=== PATIENT | male | born 1990 | race Caucasian/White ===

== ENCOUNTER 2022-08-23 22:06 | Emergency (ER) | payer OTHER, SELFPAY ==
--- NOTE | ~2022-08-23 | XR_ITS ---
EXAMINATION: XR HAND, RIGHT CLINICAL INFORMATION: Infection the middle finger. Suspected osteomyelitis. COMPARISON: None TECHNIQUE: PA, lateral, and oblique views of the right hand. FINDINGS: The third digit shows satisfactory bony alignment and intact cortices. Articular margins, joint space appear unremarkable. Incidental note is made of mild deformity and subtle radiolucency involving the shaft of the fifth metacarpal, likely represent old posttraumatic change. XR/XR hand RT min 3V IMPRESSION: No radiographic evidence of osteomyelitis involving the left third finger.
--- NOTE | ~2022-08-23 | CT_ITS ---
EXAMINATION: CT HEAD WITHOUT CONTRAST CLINICAL INFORMATION: Altered mental status COMPARISON: None. TECHNIQUE: Contiguous axial imaging was performed from the skull base to vertex without intravenous administration of contrast. Coronal and sagittal reformatted images are performed at the CT scanner. [This CT examination was performed using dose optimization techniques as appropriate, variously including the following: *Automated exposure control *Adjustment of mA and/or kV according to patient size (this includes techniques or standardized protocols for targeted exams where dose is matched to indication/reason for exam; i.e. extremities or head) *Use of iterative reconstruction technique] DLP: 648 mGy-cm. FINDINGS: There is no evidence of acute intracranial hemorrhage or territorial infarction. No abnormal mass-effect or midline shift is seen. Edmonds to white matter differentiation is well preserved. No extra-axial fluid collections are identified. The ventricles are normal in size. There is no abnormal attenuation within the brain parenchyma. There is no osseous abnormality. The mastoid air cells and visualized portions of the paranasal sinuses are well-aerated. CT/CT head/brain wo IV con IMPRESSION: No acute intracranial pathology.
[2022-08-23 22:38] VITALS: BP 124/82; PULSE 84; PULSE 95; RESP 20; TEMP 36.7; O2SAT 100; O2SAT 98; BMI 30.1
--- NOTE | 2022-08-23 22:59 | ED.GENADULT ---
HPI - General Adult General Chief complaint: Skin/Abscess/Foreign Body Stated complaint: psych eval Time Seen by Provider: 08/23/22 22:53 Source: patient and EMS Mode of arrival: EMS Limitations: no limitations History of Present Illness HPI narrative: This is a 32 year old male history of opiate use disorder on methadone presenting for medical clearance and evaluation of right middle finger swelling times a few days. Patient is coming from [facility] unit at [facility], according to report from a EMS patient was reporting that he felt foggy. Patient tells me he does feels often something does not feel right he tells me it may be his medications as they have switched multiple times. According to EMS report patient was mumbling and spacing out at the facility which prompted them to call and get him evaluated in the emergency department. No reported trauma, patient denies trauma. Patient's only complaint is his right middle finger is becoming red, swollen and painful around the nail. He tells me he frequently bites his nails. Denies fevers, chills, chest pain, shortness of breath, nausea, vomiting, headache, vision changes, dizziness, weakness. Denies suicidal and homicidal ideation. Denies drugs, alcohol tobacco. Denies visual, auditory and tactile hallucinations. Related Data Previous Rx's Medication Instructions Recorded cephalexin 500 mg tablet 500 mg PO Q6H 10 days #40 tabs 08/23/22 doxycycline hyclate 100 mg capsule 100 mg PO BID 10 days #20 caps 08/23/22 Allergies Allergy/AdvReac Type Severity Reaction Status Date / Time No Known Allergies Allergy Verified 08/23/22 22:38 Review of Systems Review of Systems: Constitutional : No Weight loss, No Fever, No Chills, No Fatigue, No Malaise ENT/Mouth : No sore throat, No Rhinorrhea Eyes: No Eye Pain, No Swelling, No Redness Cardiovascular : No Chest Pain, No SOB, No Dyspnea on Exertion, No Orthopnea, No Edema, No Palpitations Respiratory : No Cough, No Sputum, No Wheezing Gastrointestinal : No Nausea, No Vomiting, No Diarrhea, No Constipation, No abdominal Pain, No Hematochezia, No Melena Genitourinary : No Dysuria, No Urinary Frequency, No Hematuria, Musculoskeletal : + joint pain, No Myalgias, + Joint Swelling Skin : No Skin Lesions, No rash Neuro : No Weakness, No Numbness, No Dizziness, No Headache Psych : No Anxiety/Panic, No Depression All other systems reviewed and are negative Yes all other systems are reviewed and are negative [facility] Past Medical History Attestation statement: The following information was validated with the patient. Source: old records reviewed and nursing notes reviewed Social History Social History Advance Directives: No Physical Exam ED Vital Signs: Vital Signs - 24 hr 08/23/22 22:38 Temperature 98.1 F Pulse Rate 95 Respiratory Rate 20 Pulse Oximetry 98 Oxygen Delivery Method Room Air BMI result Body Mass Index 30.1 vss Appearance: Alert.? Oriented X3.? No acute distress.? Head: Normocephalic, atraumatic, no step-offs or deformities Eyes: Pupils equal, round and reactive to light.? Neck: Normal inspection.? Neck supple.? CVS: Normal heart rate and rhythm.? Pulses normal.? Respiratory: No respiratory distress.? Breath sounds normal.? Abdomen: Soft and nontender.? Skin: Skin warm and dry.? Normal skin color.? Normal skin turgor.? Extremities: No lower extremity edema.? No calf ttp. 5/5 strength to bilateral upper and lower extremities. Patient's right middle finger with paronychia noted without abscess, paronychia has overlying cellulitis. Back: No midline tenderness, no C-spine tenderness, full range of motion, no CVA tenderness bilaterally Neuro: Oriented X 3.? No motor deficit.? No sensory deficit. CN 2-12 intact . Patient following commands. Patient alert to person, place, situation however not time. Negative pronator drift. Normal strength upper and lower extremities. Normal hand print shop manager. Negative Romberg. Normal [id number]. Ambulating with steady gait normal coordination Course Reevaluation(s) Reevaluation #1: Patient's CBC with slight leukocytosis likely secondary to infection of the right middle finger. Chemistry with no acute findings requiring intervention. Ammonia within normal limits. Head CT with no acute findings. X-ray of the right hand with no radiographic evidence of osteomyelitis. Patient will be discharged back to [facility] with doxycycline and Keflex. First doses were given here. Educated patient on diagnosis and treatment plan, answered all question, patient verbalizes understanding. At this time patient will be discharged home, advised to return with new or worsening symptoms. Educated on worrisome signs and symptoms and when to return. At this time I feel comfortable discharge home. At time of discharge patient alert and oriented x4, tells me he is feeling better. Vital signs stable. Time: 00:39 Medications Administered Discontinued Medications Generic Name Dose Route Start Last Admin Trade Name Ele PRN Reason Stop Dose Admin Cephalexin HCl 500 mg 08/23/22 23:10 08/23/22 23:23 Cephalexin 500 Mg Capsule PO 08/23/22 23:11 500 mg ONCE ONE Administration Doxycycline Monohydrate 100 mg 08/23/22 23:10 08/23/22 23:23 Doxycycline Monohydrate 100 Mg Capsule PO 08/23/22 23:11 100 mg ONCE ONE Administration Medical Decision Making Medical Decision Making [facility] Narrative: 2300 32-year-old presents for evaluation of right middle finger pain and altered mental status per Denisse [place] Physical exam significant for Patient's right middle finger with paronychia noted without abscess, paronychia has overlying cellulitis. Patient alert to person, place, situation however not time. Likely paronychia to the right middle finger, unlikely septic joint, herpetic gilma, sepsis. Patient's altered mentation could be secondary to psych reasons or overmedication, I do not suspect intracranial hemorrhage, stroke, posterior stroke, encephalitis or meningitis. Plan at this time basic labs, ammonia, x-ray of right hand, head CT, UA, drug screen. Differential Diagnosis Differential Diagnoses: The differential diagnosis associated with the presentation includes Likely paronychia to the right middle finger, unlikely septic joint, herpetic gilma, sepsis. Patient's altered mentation could be secondary to psych reasons or overmedication, I do not suspect intracranial hemorrhage, stroke, posterior stroke, encephalitis or meningitis. Admission/Observation Consideration of admission/observation: Escalation of care including admission/observation considered Unlikely Lab Data 08/24/22 00:05 08/24/22 00:05 Labs: Lab Results 08/24/22 08/24/22 08/24/22 Range/Units 00:05 00:05 00:05 WBC 10.9 H (4.8-10.8) X10*3/uL RBC 5.09 (4.60-5.80) X10*6/uL Hgb 14.6 (14.0-18.0) g/dl Hct 43.1 (42.0-52.0) % MCV 84.7 (80.0-98.0) fL MCH 28.7 (27.0-33.0) pg MCHC 33.9 (31.0-36.0) g/dl RDW 12.5 (11.0-16.0) % Plt Count 324 (160-400) X10*3/uL MPV 9.1 L (9.4-12.4) fL Immature Gran % (Auto) 0.2 (0.0-0.4) % Neut % (Auto) 73.3 H (45-73) % Lymph % (Auto) 18.8 L (20-40) % Calloway % (Auto) 6.4 (2-11) % Eos % (Auto) 0.8 (0-4) % Baso % (Auto) 0.5 (0-2) % Lymph # (Auto) 2.1 (1.2-4.9) X10*3/uL Calloway # (Auto) 0.7 (0.1-1.2) X10*3/uL Eos # (Auto) 0.1 (0.0-0.4) X10*3/uL Baso # (Auto) 0.1 (0.0-0.2) X10*3/uL Abs Immat Gran (auto) 0.02 (0.00-0.03) X10*3/uL Absolute Neuts (auto) 8.0 (2.0-8.3) x10*3/uL Absolute Nucleated RBC 0.000 (0.0-0.012) X10*3/uL Nucleated RBC % (auto) 0.0 (0.0-0.2) /100WBC Sodium 140 (135-145) mmol/L Potassium 4.2 (3.3-5.1) mmol/L Chloride 107 (96-108) mmol/L Carbon Dioxide 20 L (22-29) mmol/L Anion Gap 17 (12-20) BUN 19 H (9-16) mg/dL Creatinine 1.03 (0.5-1.4) mg/dL Estim Creat Clear Calc 106.6 Estimated GFR > 60 Random Glucose 106 (60-115) mg/dL Calcium 9.5 (8.4-10.2) mg/dL Total Bilirubin 0.4 (0.0-1.0) mg/dL AST 23 (5-37) U/L ALT 33 (0-40) U/L Alkaline Phosphatase 112 (39-117) U/L Ammonia 45 (13-55) umol/L Total Protein 7.1 (6.5-8.0) g/dL Albumin 4.1 (3.5-5.0) g/dL Independent Interpretation I performed an independent interpretation of an: Plain X-Ray and CT Scan Radiology Impression Discussion of test interpretation with radiology: I have reviewed the radiologist's reading. Core Measures AMI core measures followed: Yes Measure exclusions: not indicated Discharge Plan Discharge Clinical Impression: Cellulitis, Paronychia of finger Patient Disposition: Home, Self-Care Instructions: Paronychia (ED), Cellulitis (ED), Warm Compress or Soak (ED) Additional Instructions: Take your medications as prescribed. If you were prescribed antibiotics today, it is important that you take your medication to their entirety, do not skip any doses, do not finish them early. Follow-up with your primary care provider this week. Return to the emergency department with new or worsening symptoms. Such as fevers, chills, chest pain, shortness of breath, nausea, vomiting, dizziness, headache, vision changes, lethargy, inability to bend finger, worsening redness Apply warm compresses to affected area. In case of emergency call 911 Prescriptions: New doxycycline hyclate 100 mg capsule 100 mg PO BID 10 Days Qty: 20 0RF cephalexin 500 mg tablet 500 mg PO Q6H 10 Days Qty: 40 0RF Referrals: Velvet Chin [Emergency Nurse] - 2 days Stand Alone Forms: Work/School Release
[2022-08-23] MEDS: Doxycycline Monohydrate 100 MG CAPSULE PO (23:23)
[2022-08-23] MEDS: cephALEXin 500 MG CAPSULE PO (23:23)
[2022-08-24 00:10] LABS: MANUAL DIFF FLAG NO
[2022-08-24 00:11] LABS: Basophils Absolute Auto 0.1 X10*3/uL (0.0-0.2); Basophils Percent Auto 0.5 % (0-2); Eosinophils Absolute Auto 0.1 X10*3/uL (0.0-0.4); Eosinophils Percent Auto 0.8 % (0-4); Hematocrit 43.1 % (42.0-52.0); Hemoglobin 14.6 g/dl (14.0-18.0); Imm Gran Abs Auto 0.02 X10*3/uL (0.00-0.03); Imm Gran Pct Auto 0.2 % (0.0-0.4); Lymphocytes Absolute Auto 2.1 X10*3/uL (1.2-4.9); Lymphocytes Percent Auto 18.8 % (20-40); Mean Corpuscular HGB Conc 33.9 g/dl (31.0-36.0); Mean Corpuscular Hemoglobin 28.7 pg (27.0-33.0); Mean Corpuscular Volume 84.7 fL (80.0-98.0); Mean Platelet Volume 9.1 fL (9.4-12.4); Monocytes Absolute Auto 0.7 X10*3/uL (0.1-1.2); Monocytes Percent Auto 6.4 % (2-11); Neutrophils Percent Auto 73.3 % (45-73); Platelet Count 324 X10*3/uL (160-400); Red Blood Count 5.09 X10*6/uL (4.60-5.80); Red Cell Distribution Width 12.5 % (11.0-16.0); White Blood Count 10.9 X10*3/uL (4.8-10.8)
[2022-08-24 00:19] LABS: Ammonia 45 umol/L (13-55)
[2022-08-24 00:35] LABS: Alanine Aminotransferase 33 U/L (0-40); Albumin Level 4.1 g/dL (3.5-5.0); Alkaline Phosphatase 112 U/L (39-117); Anion Gap 17 (12-20); Aspartate Amino Transferase 23 U/L (5-37); Bilirubin Total 0.4 mg/dL (0.0-1.0); Blood Urea Nitrogen 19 mg/dL (9-16); Calcium 9.5 mg/dL (8.4-10.2); Carbon Dioxide 20 mmol/L (22-29); Chloride 107 mmol/L (96-108); Creatinine Clr Calc Pharmacy 106.6; Estimated Glomerular Filt Rate > 60; Glucose Random 106 mg/dL (60-115); Potassium 4.2 mmol/L (3.3-5.1); Sodium 140 mmol/L (135-145); Total Protein 7.1 g/dL (6.5-8.0)
--- NOTE | 2022-08-24 00:48 | PC.NURSE ---
Pt. arrived via EMS from [facility]. Pt. has been calm and cooperative since arrival. Have been unable to obtain urine from pt. Pt. aware we need urine and their is a urinal at his bedside. Pt. alert and oriented upon arrival, however, sometimes doesn't seem to be aware of the time or date. Pt. asked for some saline and gauze to clean his finger. Provided this to pt. Pt. medicated with abx per SEP. Pt. currently resting in bed, under no apparent distress. Pt. pending d/c back to [facility]. Will need transportation.
[2022-08-24 01:48] LABS: Appearance Urine Clear; Color Urine Yellow; Glucose Urine UA Negative (Negative); Leukocyte Esterase Urine Negative (Negative); Nitrite Urine Negative (Negative); PH 5.5 (5.0-9.0); Specific Gravity - Urine 1.025 (1.005-1.025); Urine Blood Negative (Negative); Urine Ketones Trace mg/dL (Negative); Urine Protein Negative (Neg-Trace)
[2022-08-24 01:56] LABS: Amphetamine Screen Urine Not Detected (Not Detect); Barbiturates, Urine Not Detected (Not Detect); Benzodiazepines Screen Urine Not Detected (Not Detect); Cannabinoid Screen Urine Not Detected (Not Detect); Cocaine Screen Urine Not Detected (Not Detect); Fentanyl, urine Not Detected (Not Detect); Opiate Screen Urine Not Detected (Not Detect); Phencyclidine Screen Urine Not Detected (Not Detect)
[2022-08-24 02:00] VITALS: BP 129/76; PULSE 76; RESP 18; TEMP 36.8; O2SAT 96
--- NOTE | 2022-08-24 02:48 | PC.NURSE ---
Telephone call received from MAXINE Yost from [facility] who requested to notify Bharat, laboratory supervisor when patient is ready for discharge at [phone]. She also would like to ensure that patient would not be visited by his friends. DEB Verdin RN notified.
--- NOTE | 2022-08-24 03:10 | PC.NURSE ---
Pt. currently sleeping, respirations even and unlabored. No distress noted. Will continue to monitor.
--- NOTE | 2022-08-24 04:51 | PC.NURSE ---
Pt. sleeping, respirations even and unlabored. No distress noted. Will continue to monitor.
[2022-08-24 05:57] VITALS: BP 108/69; PULSE 75; RESP 18; TEMP 36.5; O2SAT 97
--- NOTE | 2022-08-24 08:22 | MHC.CARE ---
CARE Team left message from Joanne STEINBERG for more information
--- NOTE | 2022-08-24 08:36 | PC.NURSE ---
Tatiana from care team at bedside evaluating the pt
[2022-08-24 08:41] VITALS: BP 114/86; PULSE 69; RESP 16; O2SAT 99
--- NOTE | 2022-08-24 08:43 | PC.NURSE ---
pt alert but unable to state the month, or the year reported that its 2004 was able to say that he is in the hospital but not the name of the hospital. when this rn asked the pt if he feels confused he did say yes i do feel a little confused. all nuero's intact, vs stable no sure of the pt's baseline, mu schreiber aware
--- NOTE | 2022-08-24 10:41 | PC.NURSE ---
plan for pt to go inpateint psy at [facility] and transport for 1400
--- NOTE | 2022-08-24 10:59 | HE.PHANOTE ---
METHADONE CONFIRMATION FROM RECEIVED FROM [facility] FOR 15MG METHADONE
[2022-08-24 11:07] VITALS: BP 107/74; PULSE 64; RESP 16; O2SAT 98
--- NOTE | 2022-08-24 12:45 | PC.NURSE ---
pt alert but still appears to be confused, denies si/hi, calm and cooperative was hesitant in taking the Ativan but after some reassurance pt did take the medication
[2022-08-24 12:48] VITALS: BP 120/86; PULSE 60; RESP 18; O2SAT 94
[2022-08-24] MEDS: LORazepam 1 MG TABLET 2 MG PO (12:49)
--- NOTE | 2022-08-24 13:43 | PC.NURSE ---
NURSE TO NURSE GIVEN TO MARITZA AT [facility]
[2022-08-24 14:16] LABS: COVID-19 Test Negative (Negative); IDNOW Serial# BCCEAD1C
== END 2022-08-24 13:50 ==
PROVIDERS: Physician Assistant; Emergency Provider Internal Medicine
DX: L03.011 Cellulitis of right finger (principal); R41.82 Altered mental status, unspecified; R51.9 Headache, unspecified; Z20.822 Contact with and (suspected) exposure to COVID-19; Z20.828 Contact with and (suspected) exposure to other viral communicable diseases; Z79.899 Other long term (current) drug therapy
CPT/HCPCS: 36415; 70450; 73130; 80053; 80307; 81003; 82140; 85025; 87635; 99285; S9485

== ENCOUNTER 2024-03-24 12:56 | Outpatient (REF) | payer OTHER, SELFPAY ==
[2024-03-24 13:12] LABS: MANUAL DIFF FLAG NO
[2024-03-24 14:09] LABS: Basophils Percent Auto 0.6 % (0-2); Eosinophils Absolute Auto 0.4 X10*3/uL (0.0-0.4); Eosinophils Percent Auto 6.6 % (0-4); Hematocrit 40.7 % (42.0-52.0); Imm Gran Abs Auto 0.01 X10*3/uL (0.00-0.03); Imm Gran Pct Auto 0.2 % (0.0-0.4); Lymphocytes Absolute Auto 2.5 X10*3/uL (1.2-4.9); Lymphocytes Percent Auto 47.5 % (20-40); Mean Corpuscular HGB Conc 31.9 g/dl (31.0-36.0); Mean Corpuscular Hemoglobin 28.8 pg (27.0-33.0); Mean Corpuscular Volume 90.2 fL (80.0-98.0); Monocytes Absolute Auto 0.3 X10*3/uL (0.1-1.2); Monocytes Percent Auto 5.8 % (2-11); Neutrophils Absolute Auto 2.1 x10*3/uL (2.0-8.3); Neutrophils Percent Auto 39.3 % (45-73); Platelet Count 286 X10*3/uL (160-400); Red Blood Count 4.51 X10*6/uL (4.60-5.80); Red Cell Distribution Width 13.1 % (11.0-16.0); White Blood Count 5.3 X10*3/uL (4.8-10.8)
== END 2024-03-24 12:57 | disposition home or self-care (01) ==
LOC: HO.LABR 12:56
PROVIDERS: Visit Provider Nurse Practitioner Psychiatric/Mental Health
DX: Z79.899 Other long term (current) drug therapy (principal)
CPT/HCPCS: 36415; 85025

== ENCOUNTER 2024-03-31 08:54 | Outpatient (REF) | payer OTHER, SELFPAY ==
[2024-03-31 09:09] LABS: MANUAL DIFF FLAG NO
[2024-03-31 09:36] LABS: Basophils Absolute Auto 0.1 X10*3/uL (0.0-0.2); Basophils Percent Auto 1.2 % (0-2); Eosinophils Absolute Auto 0.3 X10*3/uL (0.0-0.4); Eosinophils Percent Auto 7.8 % (0-4); Hematocrit 41.8 % (42.0-52.0); Hemoglobin 13.6 g/dl (14.0-18.0); Imm Gran Abs Auto 0.01 X10*3/uL (0.00-0.03); Imm Gran Pct Auto 0.2 % (0.0-0.4); Lymphocytes Absolute Auto 2.3 X10*3/uL (1.2-4.9); Lymphocytes Percent Auto 55.3 % (20-40); Mean Corpuscular HGB Conc 32.5 g/dl (31.0-36.0); Mean Corpuscular Hemoglobin 28.9 pg (27.0-33.0); Mean Corpuscular Volume 88.7 fL (80.0-98.0); Mean Platelet Volume 8.8 fL (9.4-12.4); Monocytes Absolute Auto 0.3 X10*3/uL (0.1-1.2); Monocytes Percent Auto 6.6 % (2-11); Neutrophils Absolute Auto 1.2 x10*3/uL (2.0-8.3); Neutrophils Percent Auto 28.9 % (45-73); Platelet Count 305 X10*3/uL (160-400); Red Blood Count 4.71 X10*6/uL (4.60-5.80); Red Cell Distribution Width 12.8 % (11.0-16.0); White Blood Count 4.1 X10*3/uL (4.8-10.8)
== END 2024-03-31 08:55 | disposition home or self-care (01) ==
LOC: HO.LABR 08:54
PROVIDERS: Visit Provider Nurse Practitioner Psychiatric/Mental Health
DX: Z79.899 Other long term (current) drug therapy (principal)
CPT/HCPCS: 36415; 85025

== ENCOUNTER 2024-04-04 08:59 | Outpatient (REF) | payer OTHER, SELFPAY ==
[2024-04-04 09:10] LABS: MANUAL DIFF FLAG NO
[2024-04-04 09:37] LABS: Basophils Percent Auto 0.9 % (0-2); Eosinophils Absolute Auto 0.4 X10*3/uL (0.0-0.4); Eosinophils Percent Auto 8.2 % (0-4); Hematocrit 43.7 % (42.0-52.0); Hemoglobin 14.2 g/dl (14.0-18.0); Imm Gran Abs Auto 0.01 X10*3/uL (0.00-0.03); Imm Gran Pct Auto 0.2 % (0.0-0.4); Lymphocytes Absolute Auto 2.1 X10*3/uL (1.2-4.9); Lymphocytes Percent Auto 47.2 % (20-40); Mean Corpuscular HGB Conc 32.5 g/dl (31.0-36.0); Mean Corpuscular Hemoglobin 28.8 pg (27.0-33.0); Mean Corpuscular Volume 88.6 fL (80.0-98.0); Mean Platelet Volume 9.1 fL (9.4-12.4); Monocytes Absolute Auto 0.2 X10*3/uL (0.1-1.2); Monocytes Percent Auto 5.5 % (2-11); Neutrophils Absolute Auto 1.7 x10*3/uL (2.0-8.3); Platelet Count 324 X10*3/uL (160-400); Red Blood Count 4.93 X10*6/uL (4.60-5.80); Red Cell Distribution Width 12.8 % (11.0-16.0); White Blood Count 4.4 X10*3/uL (4.8-10.8)
== END 2024-04-04 09:00 | disposition home or self-care (01) ==
LOC: HO.LABR 08:59
PROVIDERS: Visit Provider Nurse Practitioner Psychiatric/Mental Health
DX: Z79.899 Other long term (current) drug therapy (principal)
CPT/HCPCS: 36415; 85025